=== PATIENT | female | born 1990 ===

== ENCOUNTER 2019-12-28 19:30 | Inpatient (IN) | payer BC ==
[2019-12-29] MEDS ORDERED: Bupivacaine 0.25% HCL 30 ML VIAL ONE (12:47)
[2019-12-29] MEDS ORDERED: Terbutaline Sulfate 1 MG/ML VIAL ONE (12:47)
[2019-12-29] MEDS ORDERED: Misoprostol 200 MCG TAB ONE (12:57)
[2019-12-29 13:46] VITALS: BMI 30.2
[2019-12-29] MEDS ORDERED: Butorphanol Tartrate 1 MG/ML VIAL SLOW IVP PRN (13:53)
[2019-12-29] MEDS ORDERED: Promethazine HCl 25 MG/ML VIAL IM PRN ×2 (13:53→20:13)
[2019-12-29] MEDS ORDERED: HYDROcodone/Acetaminophen 5/325 mg Tablet PO PRN (13:53)
[2019-12-29] MEDS ORDERED: Lidocaine 1% (PF) 30 ML VIAL SC PRN (13:53)
[2019-12-29] MEDS ORDERED: Acetaminophen 500 MG TAB PO PRN (13:53)
[2019-12-29] MEDS ORDERED: hydrALAZINE 20 MG/ML VIAL SLOW IVP PRN (13:53)
[2019-12-29] MEDS ORDERED: Diphenoxylate HCl/Atropine Tablet PO PRN (13:53)
[2019-12-29] MEDS ORDERED: Ibuprofen 800 MG TAB PO PRN (13:53)
[2019-12-29] MEDS ORDERED: Misoprostol 200 MCG TAB PR PRN (13:53)
[2019-12-29] MEDS ORDERED: Ondansetron PF 4 MG/2 ML Vial IVP PRN ×2 (13:53→20:13)
[2019-12-29] MEDS ORDERED: Carboprost 250 MCG/ML AMP IM PRN (13:53)
[2019-12-29] MEDS ORDERED: Lactated Ringer's 1,000 ML IV SCH (14:00)
[2019-12-29] MEDS ORDERED: NS w/ Oxytocin 10 units 500 ML IV SCH (14:00)
[2019-12-29] MEDS ORDERED: Misoprostol 100 MCG TAB VAG SCH (14:00)
[2019-12-29 14:01] LABS: Hemoglobin 12.5 g/dL (12.0-16.0); Mean Corpuscular HGB CONC 34.7 g/dL (32.0-36.0); Mean Corpuscular Hemoglobin 29.9 pg (27.0-31.0); Mean Platelet Volume 11.1 fL (7.4-10.4); Platelet Count 120 thou/uL (130-400); RBC Distribution Width 12.7 % (11.5-14.5); Red Blood Cell (RBC) Count 4.17 mill/uL (4.20-5.40); White Blood Cell (WBC) Count 7.9 thou/uL (4.8-10.8)
[2019-12-29 14:41] LABS: HBSAg Index 0.32 S/CO (0-0.99); Hep B Surf Ag Non-Reactive S/CO (NonReactive)
[2019-12-29 14:44] LABS: Syphilis Antibody Nonreactive (Nonreactive); Syphilis Antibody Index 0.03 S/CO (<1.00 Non-Reactive)
[2019-12-29] MEDS ORDERED: Fentanyl 4 mcg/Bup 0.1% Cadd 100 ML ONE (19:22)
[2019-12-29] MEDS ORDERED: EPHEDRINE 25 MG/5 ML SYRINGE SLOW IVP PRN (20:13)
[2019-12-29] MEDS ORDERED: Acetaminophen 325 MG TAB PO PRN (20:13)
[2019-12-29] MEDS ORDERED: Lactated Ringer's 500 ML IV PRN (20:13)
[2019-12-29] MEDS ORDERED: Naloxone HCl 0.4 mg/ml Vial IVP PRN ×2 (20:13)
[2019-12-29] MEDS ORDERED: diphenhydrAMINE 50 MG/ML VIAL IVP PRN (20:13)
[2019-12-29] MEDS ORDERED: Fentanyl 4 mcg/Bupivacaine 0.1% Cassette 100 ML EPIDURAL SCH (20:15)
[2019-12-29] MEDS ORDERED: Communication Order-Pharmacy FS SCH (20:15)
[2019-12-29] MEDS ORDERED: Lidocaine 1% (PF) 30 ML VIAL ONE (23:29)
[2019-12-29] MEDS: NS / Oxytocin 40 units/1000ml 1,000 ML IV PRN (23:50)
--- NOTE | 2019-12-30 00:03 | PDOC.OPDEL ---
OB Operative/Delivery Note Delivery Dr/Surgeon: Debbie Pre-Delivery Diagnosis: elective induction Procedure/Post Delivery Dx: spontaneous vaginal delivery Weeks gestation: 40 Anesthesia: epidural - Findings A Sex: female - 1 min: 9 - 5 min: 9 - Additional Findings/Plan Placenta delivered: spontaneous Repaired Obstetrical Laceration: 1st degree Estimated blood loss: 75ml qbl Post delivery plan: routine recovery
[2019-12-30] MEDS: NS / Oxytocin 40 units/1000ml 1,000 ML IV PRN (02:00)
[2019-12-30] MEDS ORDERED: HYDROcodone/Acetaminophen 5/325 mg Tablet PO PRN ×2 (02:10)
[2019-12-30] MEDS ORDERED: hydrALAZINE 20 MG/ML VIAL SLOW IVP PRN ×2 (02:10)
[2019-12-30] MEDS ORDERED: Benzocaine-Menthol 82.5 ML CAN TOP PRN (02:10)
[2019-12-30] MEDS ORDERED: NS / Oxytocin 40 units/1000ml 1,000 ML IV PRN (02:10)
[2019-12-30] MEDS ORDERED: Ondansetron PF 4 MG/2 ML Vial IVP PRN (02:10)
[2019-12-30] MEDS ORDERED: Lanolin Ointment 7 GM TUBE TOP PRN (02:10)
[2019-12-30] MEDS ORDERED: Bisacodyl 10 MG SUPP PR PRN (02:10)
[2019-12-30] MEDS ORDERED: traMADol HCl 50 MG TAB PO PRN (02:10)
[2019-12-30] MEDS ORDERED: Ibuprofen 800 MG TAB PO PRN (02:10)
[2019-12-30] MEDS ORDERED: Lactated Ringer's 1,000 ML IV SCH (02:10)
[2019-12-30] MEDS ORDERED: Butorphanol Tartrate 1 MG/ML VIAL SLOW IVP PRN (02:10)
[2019-12-30] MEDS ORDERED: Milk Of Magnesia 30 ML UDCUP PO PRN (02:10)
[2019-12-30] MEDS ORDERED: NS / Oxytocin 40 units/1000ml 1,000 ML IV SCH (02:10)
[2019-12-30] MEDS ORDERED: Promethazine HCl 25 MG/ML VIAL IM PRN (02:10)
[2019-12-30] MEDS ORDERED: Lidocaine 1% (PF) 30 ML VIAL SC PRN (02:10)
[2019-12-30] MEDS: Misoprostol 100 MCG TAB VAG SCH ×6 (03:44→20:50)
[2019-12-30] MEDS: Lactated Ringer's 1,000 ML IV SCH ×4 (03:45→21:44)
[2019-12-30] MEDS: NS w/ Oxytocin 10 units 500 ML IV SCH ×2 (03:46→23:25)
[2019-12-30] MEDS: Ibuprofen 800 MG TAB PO SCH ×3 (06:21→21:40)
--- NOTE | 2019-12-30 08:47 | PDOC.PP ---
Post Progress Note Post Day #: 0-1 PO intake tolerated: yes Flatus: yes Ambulation: yes Vital Signs (12 hours) Temp Pulse Resp BP Pulse Ox 12/30/19 08:00 98.7 F 73 12 106/64 97 12/30/19 04:20 97.9 F 68 18 114/60 98 12/30/19 03:20 98.4 F 69 18 104/55 L 96 12/30/19 02:45 98.9 F 94 18 124/58 L 96 12/30/19 02:20 96 Weight Weight 176 lb Result Diagrams: 12/29/19 13:37 Additional Labs: Post Labs Blood Type O POSITIVE 12/29/19 14:33 Hep Bs Antigen Non-Reactive S/CO (NonReactive) 12/29/19 13:37 - Assessment/Plan Post day 0-1. ...doing well. D/c in AM. f/u 6 weeks.
[2019-12-30] MEDS: Ferrous Sulfate 325 MG TAB PO SCH ×2 (08:55→18:11)
[2019-12-30] MEDS: Prenatal Vitamin 1 TAB PO SCH (08:57)
[2019-12-30] MEDS: Docusate Calcium (SURFAK) 240 MG CAP PO SCH ×2 (08:57→21:40)
[2019-12-30] MEDS ORDERED: Adacel (T-DAP) 0.5 ML SYRINGE IM ONE (09:00)
--- NOTE | 2019-12-31 04:27 | PDOC.PP ---
Post Progress Note Post Day #: 1 PO intake tolerated: yes Flatus: yes Ambulation: yes Vital Signs (12 hours) Temp Pulse Resp BP Pulse Ox 12/31/19 00:05 97.6 F 73 18 115/61 99 12/30/19 20:06 98.3 F 81 18 109/56 L 97 12/30/19 17:50 98.2 F 77 16 112/56 L 98 Weight Weight 79.832 kg - Physical Examination General: NAD Cardiovascular: no m/r/g, RRR Respiratory: clear to auscultation bilaterally, non-labored breathing Abdominal: + bowel sounds, appropriately TTP Neurological: no gross focal deficits Psychiatric: A&Ox3, normal affect Result Diagrams: 12/29/19 13:37 Additional Labs: Post Labs Blood Type O POSITIVE 12/29/19 14:33 Hep Bs Antigen Non-Reactive S/CO (NonReactive) 12/29/19 13:37 - Assessment/Plan PPD#1 from - Meeting PP milestones. Continue routine care. - Follow up with Dr Lewis in 6 wks. Phyllis Garcia MD PGY-2 Pt seen and evaluated by attending Dr Ayo Del Rosario
[2019-12-31] MEDS: Ibuprofen 800 MG TAB PO SCH ×2 (06:10→14:21)
--- NOTE | 2019-12-31 06:40 | PDOC.PP ---
Post Progress Note Post Day #: 2 Subjective: Doing well, ok for home today PO intake tolerated: yes Flatus: yes Ambulation: yes Vital Signs (12 hours) Temp Pulse Resp BP Pulse Ox 12/31/19 04:30 98.2 F 68 18 112/63 97 12/31/19 00:05 97.6 F 73 18 115/61 99 12/30/19 20:06 98.3 F 81 18 109/56 L 97 Weight Weight 176 lb - Physical Examination Respiratory: non-labored breathing Abdominal: appropriately TTP Extremities: negative homans (B) Skin: no rash Neurological: no gross focal deficits Psychiatric: A&Ox3, normal affect Result Diagrams: 12/29/19 13:37 Additional Labs: Post Labs Blood Type O POSITIVE 12/29/19 14:33 Hep Bs Antigen Non-Reactive S/CO (NonReactive) 12/29/19 13:37 (1) Vaginal delivery Code(s): O80 - ENCOUNTER FOR FULL-TERM UNCOMPLICATED DELIVERY Status: Acute - Assessment/Plan Plan: PPD2, ok for DC to home. F/U with Dr Lewis routine PP
[2019-12-31] MEDS: Misoprostol 100 MCG TAB VAG SCH ×2 (07:51→12:33)
[2019-12-31] MEDS: Ferrous Sulfate 325 MG TAB PO SCH (08:29)
[2019-12-31] MEDS: Prenatal Vitamin 1 TAB PO SCH (08:50)
[2019-12-31] MEDS: Docusate Calcium (SURFAK) 240 MG CAP PO SCH (08:50)
[2019-12-31 11:27] VITALS: BP 104/62; TEMP 98.5
[2019-12-31] MEDS: Lactated Ringer's 1,000 ML IV SCH (12:33)
== END 2019-12-31 14:49 | disposition home or self-care (01) | DRG 807 ==
LOC: L&D 12-29 12:32 → 3SE 12-30 02:18
PROVIDERS: ADMIT Obstetrics & Gynecology; ATTEND Obstetrics & Gynecology
PROC: 10E0XZZ Delivery of Products of Conception, External Approach (ICD-10-PCS; principal; 2019-12-29)
PROC: 0HQ9XZZ Repair Perineum Skin, External Approach (ICD-10-PCS; 2019-12-29)
DX: O48.0 Post-term pregnancy (principal); Z37.0 Single live birth; Z3A.40 40 weeks gestation of pregnancy; O70.0 First degree perineal laceration during delivery
CPT/HCPCS: 36415; 51702; 85027; 86780; 86850; 86900; 86901; 87340; J2001; J2590; J3105; S0020